=== PATIENT | female | born 1990 | race Caucasian/White ===

== ENCOUNTER 2017-09-28 10:47 | Emergency (ER) | payer MEDICAID ==
[2017-09-28 10:54] VITALS: BP 126/93; PULSE 99; RESP 18; TEMP 98.4; O2SAT 98
--- NOTE | 2017-09-28 11:32 | EDPHY ---
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 She says she frequently has feeling of dislocation or subluxation that resolved. Yesterday the pain started in the right 2nd metatarsal has not resolved. It is severely painful and ambulating. No numbness or tingling. Radiates into the entire foot. No trauma or injury. No pain anywhere else on her right leg. She has not yet been evaluated. She has no current orthopedist despite the history of [place]. No other associated complaints or modifying factors. ESTABLISHED ORTHOPEDIST: None REVIEW OF SYSTEMS: Ten systems reviewed and are negative unless otherwise noted in the HPI PAST MEDICAL HISTORY: [place] infraction SOCIAL HISTORY: Nonsmoker. FAMILY HISTORY: Noncontributory EXAMINATION General Appearance: Alert, no distress Cardiovascular: Pulses normal throughout with symmetric DP and PT pulses 2+. Brisk cap refill Neurological: A&O, light sensation to the top the foot symmetric, strength symmetric. No foot drop. Normal proprioception of the right great toe Skin: Warm and dry, no rash. No petechiae. No ecchymosis. No puncture laceration Extremities: Tenderness right midfoot over the 2nd metatarsal near the MTP. No obvious deformity. No crepitus. Range of motion is symmetric to the left. Neurovascular intact distally. Psychiatric: Mood and affect normal DIFFERENTIAL DIAGNOSES: Including but not limited to fracture, sprain, strain dislocation MDM: 11:20 a.m. Pain in the right foot with history of [place] infraction. No acute trauma or injury. Neurovascular intact with pain located only in the right 2nd tarsal. X-ray is ordered. She is in no acute distress. 12:38 p.m. X-ray has been read by radiologist with findings consistent with patient's history. She is neuro intact with no acute distress. No fever. No cellulitis or warmth. Provide a Brewster boot and symptomatic medications. She is to take [id number] anti-inflammatories. She has been provided information orthopedic surgery follow-up. We discuss outpatient follow-up with them and ED precautions. She is comfortable this plan and discharged home stable condition. SUPERVISION: Patient was independently examined, but I discussed the case with my secondary supervising physician Dr. Partida ED Precautions: Worsening pain. Erythema, edema, cyanosis, pallor, paresthesia or anesthesia. - History Smoking Status: Never smoked - Objective Vital Signs: Initial Vital Signs Temperature (C) 98.4 F 09/28/17 10:50 Heart Rate 99 09/28/17 10:50 Respiratory Rate 18 09/28/17 10:50 Blood Pressure 126/93 H 09/28/17 10:50 O2 Sat (%) 98 09/28/17 10:50 O2 Delivery Mode Room Air Allergies/Adverse Reactions: red dye Allergy (Verified 11/01/15 10:15) sulfamethoxazole [From Bactrim] Allergy (Verified 11/01/15 10:15) trimethoprim [From Bactrim] Allergy (Verified 11/01/15 10:15) Home Medications: Medication Instructions Recorded Hydrocodone/APAP 5/325 [[place] 1 - 2 tab PO Q4H PRN #13 tab 09/28/17 5/325 (*)] Departure - Departure Disposition: Home, Routine, Self-Care 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 Benoit boot as provided as needed 2. Medications as prescribed as needed 3. Contact the orthopedic surgeon as provided for outpatient follow-up 4. ED precautions as discussed Referrals: Daniel Wilcox MD [Medical Doctor] - As per Instructions Prescriptions: Hydrocodone/APAP 5/325 [[place] 5/325 (*)] 1 - 2 tab PO Q4H PRN #13 tab PRN Reason: Pain, Moderate
== END 2017-09-28 13:13 | disposition home or self-care (01) ==
DX: M92.71 Juvenile osteochondrosis of metatarsus, right foot (principal)
CPT/HCPCS: L4386

== ENCOUNTER → 2017-10-29 | Outpatient (CLI) | payer MEDICAID | LOC: FIMAGING 12:07 | PROVIDERS: ATTEND Orthopaedic Surgery Foot and Ankle Surgery | DX: M92.71 Juvenile osteochondrosis of metatarsus, right foot (principal) ==